=== PATIENT | female | born 1985 | race Caucasian/White ===

== ENCOUNTER 2017-05-16 17:22 | Emergency (ER) | payer OTHER ==
--- NOTE | 2017-05-16 18:32 | UC ---
Back Pain HPI - HPI Summary HPI Summary: 31 YEAR OLD FEMALE PRESENTS BACK PAIN AND PAIN WITH URINATION. - History of Current Complaint Stated Complaint: LOW BACK PAIN/ PT STATES HX KIDNEY STONES Time Seen by Provider: 05/16/17 18:32 Hx Obtained From: Patient Hx Last Menstrual Period: murena ?: No Onset/Duration: Sudden Onset Timing: Constant Severity Initially: Moderate Severity Currently: Moderate Pain Scale Used: 0-10 Numeric - 7 Character: Sharp Aggravating: Movement Alleviating: Position - Allergies/Home Medications Allergies/Adverse Reactions: Allergies Allergy/AdvReac Type Severity Reaction Status Date / Time No Known Allergies Allergy Verified 05/16/17 18:41 Home Medications: Home Medications Levothyroxine TAB* [Synthroid 125 MCG TAB*] 125 mcg PO DAILY 05/16/17 [History Confirmed 05/16/17] Sertraline* [Zoloft*] 200 05/16/17 [History] PMH/Surg Hx/FS Hx/Imm Hx Previously Healthy: Yes - Surgical History Surgical History: None - Family History Known Family History: Positive: Hypertension Negative: Other - no FHx of RA or Lupus - Social History Alcohol Use: Rare Substance Use Type: None Smoking Status (MU): Never Smoked Tobacco Review of Systems Constitutional: Negative Skin: Negative Eyes: Negative ENT: Negative Respiratory: Negative Cardiovascular: Negative Gastrointestinal: Negative Genitourinary: Dysuria, Frequency, Urgency Motor: Negative Neurovascular: Negative Musculoskeletal: Other: - BACK PAIN Neurological: Negative Psychological: Negative All Other Systems Reviewed And Are Negative: Yes Physical Exam Triage Information Reviewed: Yes Vital Signs Reviewed: Yes Eye Exam: Normal ENT Exam: Normal Dental Exam: Normal Neck exam: Normal Neck: Positive: 1 Respiratory Exam: Normal Cardiovascular Exam: Normal Abdominal Exam: Normal Musculoskeletal Exam: Normal Neurological Exam: Normal Psychological Exam: Normal Skin Exam: Normal Back Pain Course/Dx - Differential Dx/Diagnosis Provider Diagnoses: BACK PAIN. FREQUENT URINATION. BURNING WITH URINATION Discharge - Discharge Plan Condition: Stable Disposition: HOME Prescriptions: Sulfamethox/Trimethoprim DS* [Bactrim DS 800/160 TAB*] 1 tab PO BID #14 tab Patient Education Materials: Urinary Tract Infection in Women (ED) Referrals: Gabrielle Peguero MD [Primary Care Provider] -
[2017-05-16 19:06] VITALS: BP 112/71
== END 2017-05-16 19:09 | disposition home or self-care (01) ==
LOC: UCCORT 17:22
DX: M54.5 Low back pain (principal); R35.0 Frequency of micturition; R30.0 Dysuria; Z87.442 Personal history of urinary calculi; Z32.02 Encounter for pregnancy test, result negative
CPT/HCPCS: 81003; 84702; 87077; 87086; 87186; 99211; G0463

== ENCOUNTER 2019-04-23 16:55 | Emergency (ER) | payer OTHER ==
[2019-04-23 17:44] VITALS: BP 115/59
--- NOTE | 2019-04-23 18:12 | UC ---
Ear Complaint HPI - HPI Summary HPI Summary: 33-year-old female who thinks she has right swimmer's ear because she's been swimming a lot and started having some ear pain. - History of Current Complaint Chief Complaint: UCEar Stated Complaint: RT EAR COMPLAINT Time Seen by Provider: 04/23/19 17:38 Hx Obtained From: Patient Hx Last Menstrual Period: Mirena IUD ?: No Onset/Duration: Gradual Onset Severity Initially: Mild Severity Currently: Mild Pain Intensity: 10 Aggravating Factors: Other - Palpation. Alleviating Factors: Nothing - Allergies/Home Medications Allergies/Adverse Reactions: Allergies Allergy/AdvReac Type Severity Reaction Status Date / Time No Known Allergies Allergy Verified 04/23/19 17:40 PMH/Surg Hx/FS Hx/Imm Hx Previously Healthy: Yes - Surgical History Surgical History: None Surgery Procedure, Year, and Place: R KNEE "SCRAPING" PAST OCTOBER - Family History Known Family History: Positive: Hypertension Negative: Other - no FHx of RA or Lupus - Social History Alcohol Use: Rare Substance Use Type: None Smoking Status (MU): Never Smoked Tobacco Review of Systems All Other Systems Reviewed And Are Negative: Yes ENT: Positive: Ear Ache Is Patient Immunocompromised?: No Physical Exam Triage Information Reviewed: Yes Appearance: Well-Appearing, No Pain Distress, Well-Nourished Vital Signs: Initial Vital Signs Temp 98.6 F 04/23/19 17:39 Pulse 76 04/23/19 17:39 Resp 18 04/23/19 17:39 BP 115/59 04/23/19 17:39 Pulse Ox 99 04/23/19 17:39 Vital Signs Reviewed: Yes Eyes: Positive: Conjunctiva Clear ENT: Positive: Hearing grossly normal, Pharynx normal, TM red - Left tympanic primary and is pearly-boothe with good land almeida and light reflex, right tragus is tender on palpation and pain with movement of the right ear the ear canal itself is mildly erythematous and swollen and the tympanic membrane is erythematous with poor landmarks and light reflex., Uvula midline Neck: Positive: Supple, Nontender, No Lymphadenopathy Respiratory: Positive: Lungs clear, Normal breath sounds, No respiratory distress, No accessory muscle use Cardiovascular: Positive: RRR, No Murmur, Pulses Normal, Brisk Capillary Refill Musculoskeletal Exam: Normal Neurological Exam: Normal Psychological Exam: Normal Skin Exam: Normal Ear Complaint Course/Dx - Course Course Of Treatment: I'm going to treat with amoxicillin for the inner ear infection and Cortisporin otic suspension for the ear canal infection and follow-up with her primary care provider in 3 or 4 days if no improvement and no swimming for a week. - Differential Dx/Diagnosis Provider Diagnosis: Right otitis media, Right otitis externa Discharge - Sign-Out/Discharge Documenting (check all that apply): Patient Departure All imaging exams completed and their final reports reviewed: No Studies - Discharge Plan Condition: Fair Disposition: HOME Prescriptions: Amoxicillin PO (*) [Amoxicillin 875 MG (*)] 875 mg PO BID 10 Days #20 tab Neomyc/Polym/HC 1% OTIC SUSP* [Cortisporin Otic Susp 1%*] 4 drop RIGHT EAR QID # 1 btl Patient Education Materials: Ear Infection (ED), Otitis Externa (DC) Referrals: Ailyn Fam NP [Primary Care Provider] - Additional Instructions: Follow-up with your primary care provider in 3 or 4 days if no improvement. Avoid swimming for one week. - Billing Disposition and Condition Condition: FAIR Disposition: Home
== END 2019-04-23 18:21 | disposition home or self-care (01) ==
LOC: UCCORT 16:55
DX: H66.91 Otitis media, unspecified, right ear (principal); H60.91 Unspecified otitis externa, right ear
CPT/HCPCS: 99212; G0463

== ENCOUNTER 2019-05-09 15:48 | Emergency (ER) | payer OTHER ==
[2019-05-09 16:56] VITALS: BP 114/69
--- NOTE | 2019-05-09 17:30 | UC ---
Ear Complaint HPI - HPI Summary HPI Summary: 33-year-old woman comes in with a chief complaint of right ear pain. Pain started about 2 weeks ago. She was treated with Cortisporin otic and amoxicillin by mouth. She reports that the ear did not improve. Pain is worse with palpation of the outer ear. She also feels like her right ear is clogged. She does have some sore throat. No rhinorrhea. No fevers no chills. - History of Current Complaint Chief Complaint: UCEar Stated Complaint: RECHECK RIGHT EAR Time Seen by Provider: 05/09/19 17:15 Hx Last Menstrual Period: Mirena IUD Pain Intensity: 6 - Allergies/Home Medications Allergies/Adverse Reactions: Allergies Allergy/AdvReac Type Severity Reaction Status Date / Time No Known Allergies Allergy Verified 05/09/19 16:56 PMH/Surg Hx/FS Hx/Imm Hx Previously Healthy: Yes - Surgical History Surgical History: None Surgery Procedure, Year, and Place: R KNEE "SCRAPING" PAST OCTOBER - Family History Known Family History: Positive: Hypertension Negative: Other - no FHx of RA or Lupus - Social History Alcohol Use: Rare Substance Use Type: None Smoking Status (MU): Never Smoked Tobacco Review of Systems All Other Systems Reviewed And Are Negative: Yes Constitutional: Positive: Negative Skin: Positive: Negative Eyes: Positive: Negative ENT: Positive: Sore Throat, Ear Ache Respiratory: Positive: Negative Cardiovascular: Positive: Negative Gastrointestinal: Positive: Negative Motor: Positive: Negative Neurovascular: Positive: Negative Musculoskeletal: Positive: Negative Neurological: Positive: Negative Psychological: Positive: Negative Is Patient Immunocompromised?: No Physical Exam Triage Information Reviewed: Yes Appearance: Well-Appearing, No Pain Distress, Well-Nourished Vital Signs: Initial Vital Signs Temp 98.1 F 05/09/19 16:53 Pulse 73 05/09/19 16:53 Resp 20 05/09/19 16:53 BP 114/69 05/09/19 16:53 Pulse Ox 96 05/09/19 16:53 Vital Signs Reviewed: Yes Eye Exam: Normal Eyes: Positive: Conjunctiva Clear ENT: Positive: Pharynx normal, TM dull - RT JAMEL, Other - Tender to palpation on the right tragus and traction on the pinna. There is debris in the ear canal. Neck: Positive: Supple Respiratory: Positive: Lungs clear, Normal breath sounds, No respiratory distress Cardiovascular: Positive: RRR Musculoskeletal: Positive: Strength Intact, ROM Intact Neurological: Positive: Alert, Muscle Tone Normal Psychological: Positive: Age Appropriate Behavior Skin Exam: Normal Ear Complaint Course/Dx - Course Course Of Treatment: With the otitis externa not improving will start ofloxacin drops and treat with by mouth Augmentin. Also this does not improve the plan is to follow-up with ear nose and throat. - Differential Dx/Diagnosis Provider Diagnosis: Right otitis externa, Right serous otitis media Discharge - Sign-Out/Discharge Documenting (check all that apply): Patient Departure All imaging exams completed and their final reports reviewed: No Studies - Discharge Plan Condition: Stable Disposition: HOME Prescriptions: Amoxicillin/Clavulanate TAB* [Augmentin TAB 875*] 875 mg PO BID #20 tab Ofloxacin 0.3% (Ear Drop)* [Floxin 0.3% OTIC.KARTHIK (Ear Drop)] 5 drop RIGHT EAR BID #1 btl Patient Education Materials: Otitis Externa (ED), Serous Otitis Media (ED) Referrals: Ailyn Fam NP [Primary Care Provider] - Andrey Benedict MD [Medical Doctor] - Additional Instructions: FOLLOW UP WITH DR BENEDICT, ENT, IF NOT COMPLETELY IMPROVED. GET REEVALUATED SOONER IF WORSE OR ANY QUESTIONS OR CONCERNS. - Billing Disposition and Condition Condition: STABLE Disposition: Home
== END 2019-05-09 17:45 | disposition home or self-care (01) ==
LOC: UCCORT 15:48
DX: H60.91 Unspecified otitis externa, right ear (principal); H65.91 Unspecified nonsuppurative otitis media, right ear
CPT/HCPCS: 99212; G0463